=== PATIENT | male | born 1960 | race Native Hawaiian/Other Pacific Islander ===

== ENCOUNTER 2016-09-22 21:10 | Outpatient (CLI) | payer OTHER | END 2016-09-22 21:14 | disposition short-term general hospital (02) | LOC: AMB 21:10 | DX: S01.81XA Laceration without foreign body of other part of head, initial encounter (principal); R00.0 Tachycardia, unspecified; F10.129 Alcohol abuse with intoxication, unspecified; Y04.2XXA Assault by strike against or bumped into by another person, initial encounter | CPT/HCPCS: A0425; A0427 ==

== ENCOUNTER 2016-09-22 21:18 | Emergency (ER) | payer OTHER ==
[~2016-09-22] VITALS: Ht 172.7 cm; Wt 74.8 kg
== END 2016-09-22 23:02 | disposition home or self-care (01) ==
LOC: ED 21:18
DX: S00.83XA Contusion of other part of head, initial encounter (principal); S20.212A Contusion of left front wall of thorax, initial encounter; S20.211A Contusion of right front wall of thorax, initial encounter; S20.222A Contusion of left back wall of thorax, initial encounter; S20.221A Contusion of right back wall of thorax, initial encounter; Y04.2XXA Assault by strike against or bumped into by another person, initial encounter
CPT/HCPCS: 99283

== ENCOUNTER 2020-08-12 17:29 | Emergency (ER) | payer OTHER ==
[~2020-08-12] VITALS: Ht 170.2 cm; Wt 68.0 kg
[2020-08-12 17:29] VITALS: BP 142/95; TEMP 97.8
== END 2020-08-12 19:55 | disposition home or self-care (01) ==
LOC: ED 17:31
DX: S20.212A Contusion of left front wall of thorax, initial encounter (principal); S00.83XA Contusion of other part of head, initial encounter; Y04.2XXA Assault by strike against or bumped into by another person, initial encounter; Y92.89 Other specified places as the place of occurrence of the external cause
CPT/HCPCS: 99283

== ENCOUNTER 2020-11-01 17:26 | Emergency (ER) | payer OTHER ==
[~2020-11-01] VITALS: Ht 170.2 cm; Wt 68.0 kg
[2020-11-01 17:27] VITALS: TEMP 99.5
[2020-11-01 18:02] LABS: PLATELET COUNT 144 K/uL (142-355)
[2020-11-01 18:06] LABS: POTASSIUM 3.9 mmol/L (3.6-5.2)
[2020-11-02 06:12] VITALS: BP 134/89
== END 2020-11-02 06:12 | disposition other institution (70) ==
LOC: ED 17:26
PROVIDERS: Emergency Medicine Emergency Medical Services
DX: R45.851 Suicidal ideations (principal); F32.9 Major depressive disorder, single episode, unspecified; F10.129 Alcohol abuse with intoxication, unspecified; Y90.8 Blood alcohol level of 240 mg/100 ml or more
CPT/HCPCS: 36415; 80053; 80307; 80320; 80329; 81000; 81002; 83735; 85027; 93005; 96365; 96375; 99285; J2405; J3411; J3475; J3490